=== PATIENT | female | born 1960 | race Caucasian/White ===

== ENCOUNTER 2017-07-23 05:04 | Inpatient (IN) | payer BC ==
[2017-07-23] MEDS ORDERED: Ketorolac INJ* 30 MG/ML 1 ML VIAL IV ONE (05:23)
[2017-07-23] MEDS ORDERED: NS 0.9% 1000 ML*IV.FLUID IV ONE (05:23)
[2017-07-23] MEDS ORDERED: Acetaminophen TAB* 325 MG PO ONE (05:26)
[2017-07-23] MEDS ORDERED: Albuterol/Ipratropium NEB.SOL* Albuterol 2.5 MG/Ipratropium 0.5 MG 3 ML INH ONE (05:26)
[2017-07-23] MEDS ORDERED: Levofloxacin 750 MG IVPREMIX(* 750 MG/150 ML BAG IVPB ONE (05:26)
--- NOTE | 2017-07-23 06:18 | ED ---
Poly Shen Gabriel, scribmaricruz for Joan Quintero MD on 07/23/17 at 0549 . Respiratory - HPI Summary HPI Summary: This patient is a 57 year old F BIBA to [facility] with a chief complaint of trouble breathing since 07-19-17. The patient rates the pain 10/10 in severity. Patient reports productive cough, CP, weakness, and fever. Patient denies n/v. Hx PNA. - History of Current Complaint Chief Complaint: EDFluSymptoms Stated Complaint: FLU LIKE SYMPTOMS Time Seen by Provider: 07/23/17 05:16 Hx Obtained From: Patient Onset/Duration: Lasting Days, Still Present Timing: Constant Initial Severity: Severe Current Severity: Severe Pain Intensity: 10 Character: Cough (Productive) Sputum Amount: Small Associated Signs and Symptoms: Fever, SOB, Chest Pain - Allergy/Home Medications Allergies/Adverse Reactions: Allergies Allergy/AdvReac Type Severity Reaction Status Date / Time cephalexin [From Keflex] Allergy Unknown Verified 07/23/17 05:40 Reaction Details ibuprofen [From Motrin] Allergy Unknown Verified 07/23/17 05:40 Reaction Details PMH/Surg Hx/FS Hx/Imm Hx Endocrine/Hematology History: Reports: Hx Thyroid Disease Cardiovascular History: Denies: Hx Myocardial Infarction Respiratory History: Denies: Hx Chronic Obstructive Pulmonary Disease (COPD), Hx Cystic Fibrosis Neurological History: Denies: Hx CVA, Hx Dementia - Cancer History Hx Chemotherapy: No Hx Radiation Therapy: No Infectious Disease History: No Infectious Disease History: Denies: Traveled Outside the [place] in Last 30 Days - Family History Known Family History: Positive: Hypertension Negative: Respiratory Disease, Seizure Disorder - Social History Alcohol Use: None Substance Use Type: Reports: None Smoking Status (MU): Former Smoker Review of Systems Positive: Fever Positive: Chest Pain Positive: Shortness Of Breath, Cough Positive: Weakness All Other Systems Reviewed And Are Negative: Yes Physical Exam - Summary Physical Exam Summary: VITAL SIGNS: Reviewed. GENERAL: Patient is a well-developed and nourished female who is lying comfortable in the stretcher. Patient is not in any acute respiratory distress. HEAD AND FACE: No signs of trauma. No ecchymosis, hematomas or skull depressions. No sinus tenderness. EYES: PERRLA, EOMI x 2, No injected conjunctiva, no nystagmus. EARS: Hearing grossly intact. Ear canals and tympanic membranes are within normal limits. MOUTH: Oropharynx within normal limits. NECK: Supple, trachea is midline, no adenopathy, no JVD, no carotid bruit, no c- spine tenderness, neck with full ROM. CHEST: Symmetric, no tenderness at palpation LUNGS: bilateral wheezes CVS: Regular rate and rhythm, S1 and S2 present, no murmurs or gallops appreciated. ABDOMEN: Soft, non-tender. No signs of distention. No rebound no guarding, and no masses palpated. Bowel sounds are normal. EXTREMITIES: FROM in all major joints, no edema, no cyanosis or clubbing. NEURO: Alert and oriented x 3. No acute neurological deficits. Speech is normal and follows commands. SKIN: Dry and warm Triage Information Reviewed: Yes Vital Signs On Initial Exam: Initial Vitals Temp Pulse Resp BP Pulse Ox 100.9 F 103 20 108/56 94 07/23/17 05:05 07/23/17 05:05 07/23/17 05:05 07/23/17 05:05 07/23/17 05:05 Vital Signs Reviewed: Yes Diagnostics - Vital Signs Vital Signs Temp Pulse Resp BP Pulse Ox 07/23/17 05:05 100.9 F 103 20 108/56 94 - Laboratory Lab Statement: Any lab studies that have been ordered have been reviewed, and results considered in the medical decision making process. - Radiology CXR Radiology Interpretation Completed By: ED Physician - bilateral basal PNA - EKG 0553 Cardiac Rate: Tachycardia EKG Rhythm: Sinus Tachycardia - at 104 BPM Disposition - Course Assessment/Plan: This patient is a 57 year old F BIBA to [facility] with a chief complaint of trouble breathing since 07-19-17. The patient rates the pain 10/10 in severity. Patient reports productive cough, CP, weakness, and fever. Patient denies n/v. Hx PNA. An EKG reveals sinus tachycardia. CXR reveals, bilateral basal PNA. In the ED course the patient was given Levaquin, albuterol, toradol , and IV fluids. Patient will be admitted under Dr. Barboza. The patient is agreeable with this plan. - Diagnoses Provider Diagnoses: PNA (pneumonia) - Physician Notifications Discussed Care Of Patient With: Brittney Barboza Time Discussed With Above Provider: 06:01 Instructed by Provider To: Admit As Inpatient Discharge - Discharge Plan Condition: Fair Disposition: ADMITTED TO [facility] Referrals: Will Gamez MD [Primary Care Provider] - The documentation as recorded by the Poly york Gabriel accurately reflects the service I personally performed and the decisions made by me, Joan Quintero MD.
[2017-07-23 06:19] LABS: Hematocrit 35 % (35-47); Hemoglobin 11.4 g/dl (12.0-16.0); Mean Corpuscular HGB Conc 33 g/dl (31-36); Mean Corpuscular Hemoglobin 29 pg (27-31); Mean Corpuscular Volume 88 fL (80-97); Mean Platelet Volume 10 um3 (7.4-10.4); Platelet Count 221 10^3/ul (150-450); Red Blood Count 3.91 10^6/ul (4.0-5.4); Red Cell Distribution Width 14 % (10.5-15); White Blood Count 15.3 10^3/ul (3.5-10.8)
[2017-07-23 06:33] LABS: INR 1.17 (0.77-1.02)
[2017-07-23 06:35] LABS: EGFR Non-African American 45.6 (>60)
[2017-07-23] MEDS: Albuterol 2.5 MG/3 ML NEB.SOL* (0.083%) INH SCH (06:44)
[2017-07-23 06:45] LABS: ABS Basophils 0 10^3/ul (0-0.2); ABS Eosinophils 0 10^3/ul (0-0.6); ABS Lymphocytes 0.8 10^3/ul (1.0-4.8); ABS Monocytes 0.4 10^3/ul (0-0.8); ABS Neutrophils 14.2 10^3/ul (1.5-7.7); ABS Nucleated RBC 0 10^3/ul; Eosinophil % 0.1 % (0-6); Lymphocyte % 4.9 % (25-47); Nucleated Red Blood Cells % 0
[2017-07-23] MEDS ORDERED: Aspirin Low Dose CHEW TAB* 81 MG PO ONE (06:46)
--- NOTE | 2017-07-23 08:14 | RAD ---
INDICATION: "Flulike symptoms" COMPARISON: Chest x-ray January 26, 2003 TECHNIQUE: Single AP portable view of the chest was obtained. FINDINGS: Image quality is compromised due to the relative inferiority of a portable chest x-ray. The heart and mediastinum exhibit normal size and contour. There are right greater than left patchy densities overlying the mid-level and lower lungs not seen on the previous chest x-ray. More superiorly the lungs are adequately aerated. There is no evidence of a large pleural effusion. Visualized bones are normal for the patient's age. IMPRESSION: Patchy densities described above are most consistent with pneumonia according to the reported clinical presentation. Pulmonary edema is also part of the differential.
--- NOTE | 2017-07-23 09:01 | HP ---
ADDENDUM: DATE OF ADMISSION: 07/23/17 ASSESSMENT AND PLAN: # next: Elevated troponin - she has not had chest pain during these symptoms. Her first troponin is 0.09. I suspect this is demand in relation to sepsis. I will repeat a troponin and repeat an EKG later today. [id number]/[facility] #: [id number] MTDD
[2017-07-23] MEDS: NS 0.9% 1000 ML* 1,000 ML IV SCH ×2 (09:49→19:00)
[2017-07-23] MEDS: traMADol TAB* 50 MG PO PRN ×2 (10:28→19:39)
[2017-07-23] MEDS: Levothyroxine TAB* 100 MCG TAB PO SCH (10:28)
[2017-07-23] MEDS: Enoxaparin(*) 40 MG/0.4 ML SYR SUBCUT SCH (10:29)
--- NOTE | 2017-07-23 15:55 | HP ---
An addendum is now included on this report. CC: Dr. Gamez.* HISTORY AND PHYSICAL: DATE OF ADMISSION: 07/23/17 TIME OF ADMISSION: 8 o'clock a.m. PRIMARY CARE PHYSICIAN: Dr. Gamez. CHIEF COMPLAINT: Cough. HISTORY OF PRESENT ILLNESS: This is a 57-year-old female with history of DJD and hypothyroidism, who presents with a cough and fever since Saturday. 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 Since Saturday, she has had subjective fevers, nausea and a productive cough at home. She is coughing up copious brown sputum and this morning continued to feel poorly, so she came to the emergency department. No upper respiratory symptoms. No diarrhea. PAST MEDICAL HISTORY: 1. Sciatica. 2. Degenerative joint disease. 3. Hypothyroidism. ALLERGIES: KEFLEX to which she gets lips swelling and eye swelling and MOTRIN. 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 She is a former smoker, but has not smoked since she started feeling poorly 4 days ago. She lives at home with her . She denies alcohol or illicit drug use. REVIEW OF SYSTEMS: Positive for fevers and nausea and cough productive of brown sputum. Negative for diarrhea, abdominal pain, headache, and muscle aches. PHYSICAL EXAMINATION GENERAL: Alert female in no distress, but uncomfortable appearing. VITAL SIGNS: Temperature 100.9, heart rate 102, respiratory rate 27, pulse ox 97% on room air, blood pressure 98/52. HEENT: Pupils equal, round, and reactive to light. No conjunctival injection. Moist mucosa. Tonsils are absent. No pharyngeal exudates. NECK: No JVP. No cervical adenopathy. CHEST: Coarse rhonchi at bilateral bases. She has a wet cough with deep inspiration. Tachycardic, no murmurs. PMI nondisplaced. ABDOMEN: Soft, nontender, nondistended. Bowel sounds normoactive. EXTREMITIES: No edema, no rashes. NEUROLOGIC: Strength 5+, sensation intact. LABORATORY DATA: White blood cell 15.3, hemoglobin 11.4, platelets 221. Troponin 0.09. Flu swab negative. Sodium 133, potassium 4.4, chloride 98, bicarb 28, BUN 35, creatinine 1.22. DIAGNOSTIC DATA: Chest x-ray: Bilateral infiltrates at the inferior bases. EKG: Sinus tachycardia with normal axis, normal intervals. ST elevation in V2. ASSESSMENT AND PLAN: This is a 57-year-old female with history of tobacco abuse , who presents with a cough and fevers for the last 4 days and is found to have the bilateral pneumonia on chest x-ray. 1. Sepsis due to community-acquired pneumonia. She received a dose of levofloxacin in the emergency department and I will continue this due to her CEPHALOSPORIN allergy. Levaquin should cover community acquired organisms as well as atypical organisms. Check a sputum culture. Continue IV fluid resuscitation and check lactate. 2. Acute renal failure, likely prerenal in the setting of sepsis. Continue IV fluid resuscitation. 3. Hypothyroidism. Continue home dose of levothyroxine. 4. Degenerative joint disease and sciatica. Hold Mobic due to acute renal failure and start tramadol p.r.n. 5. DVT prophylaxis. Lovenox subcu. 6. Diet: Unrestricted. 7. Activity: Ad-pat. ADDENDUM TO HISTORY AND PHYSICAL: DATE OF ADMISSION: 07/23/17 ASSESSMENT AND PLAN: # next: Elevated troponin - she has not had chest pain during these symptoms. Her first troponin is 0.09. I suspect this is demand in relation to sepsis. I will repeat a troponin and repeat an EKG later today. [id number]/[facility] #: [id number]/[facility] #: [id number] [facility] SYSTEMBrian
[2017-07-23 19:14] LABS: Urine Appearance Cloudy; Urine Blood Negative (Negative); Urine Color Yellow; Urine Ketones Negative (Negative); Urine Protein 1+(30 mg/dL) (Negative); Urine Urobilinogen Negative (Negative)
[2017-07-24] MEDS: NS 0.9% 1000 ML* 1,000 ML IV SCH ×4 (01:27→20:24)
[2017-07-24 01:55] LABS: Hematocrit 28 % (35-47); Hemoglobin 9.4 g/dl (12.0-16.0); Mean Corpuscular HGB Conc 34 g/dl (31-36); Mean Corpuscular Hemoglobin 30 pg (27-31); Mean Corpuscular Volume 88 fL (80-97); Mean Platelet Volume 10 um3 (7.4-10.4); Platelet Count 202 10^3/ul (150-450); Red Blood Count 3.18 10^6/ul (4.0-5.4); Red Cell Distribution Width 14 % (10.5-15)
[2017-07-24 02:04] LABS: EGFR Non-African American 52.5 (>60)
[2017-07-24 02:31] LABS: ABS Basophils 0 10^3/ul (0-0.2); ABS Eosinophils 0 10^3/ul (0-0.6); ABS Monocytes 0.5 10^3/ul (0-0.8); ABS Neutrophils 9.4 10^3/ul (1.5-7.7); ABS Nucleated RBC 0 10^3/ul; Eosinophil % 0.2 % (0-6); Lymphocyte % 9.2 % (25-47); Nucleated Red Blood Cells % 0
[2017-07-24] MEDS: Levothyroxine TAB* 100 MCG TAB PO SCH (07:40)
[2017-07-24] MEDS: Enoxaparin(*) 40 MG/0.4 ML SYR SUBCUT SCH (07:40)
--- NOTE | 2017-07-24 07:53 | RAD ---
INDICATION: Hypoxia. COMPARISON: Comparison is made with a prior study from July 23, 2017. TECHNIQUE: A portable view of the chest was obtained. FINDINGS: Cardiac and mediastinal contours appear to be within normal limits. There are focal infiltrates present in the mid and lower lung cameron which appear to progressed slightly from the prior study. There are suggestion of small bilateral pleural effusions. IMPRESSION: BILATERAL INFILTRATES DEMONSTRATING INTERVAL PROGRESSION.
[2017-07-24] MEDS ORDERED: Vancomycin(*) 0 MG in NS 0.9% 250 ML* 250 ML IVPB SCH (08:00)
[2017-07-24] MEDS ORDERED: Piperacillin/Tazobac ADVAN(*) 3.375 GM in NS 0.9% 100 ML* 100 ML IVPB ONE (08:00)
[2017-07-24] MEDS ORDERED: Zosyn per Pharmacy* NOTE FOLLOW UP PRN (08:15)
[2017-07-24] MEDS ORDERED: Vancomycin per Pharmacy* NOTE FOLLOW UP PRN (08:26)
[2017-07-24] MEDS ORDERED: Vancomycin(*) 1,250 MG in NS 0.9% 250 ML* 250 ML IVPB ONE (08:30)
[2017-07-24] MEDS ORDERED: Levofloxacin 750 MG IVPREMIX(* 750 MG/150 ML BAG IVPB SCH (09:00)
[2017-07-24] MEDS: traMADol TAB* 50 MG PO PRN ×2 (09:19→20:33)
--- NOTE | 2017-07-24 10:25 | PN ---
Subjective Date of Service: 07/24/17 Interval History: transferred to ICU overnight for hypoxia. now on vapotherm. still feeling short of breath with productive cough. Family History: Unchanged from Admission Social History: Unchanged from Admission Past Medical History: Unchanged from Admission Objective Active Medications: Enoxaparin Sodium (Lovenox(*)) 40 mg SUBCUT Q24H [facility] Last Admin: 07/24/17 07:40 Dose: 40 mg Sodium Chloride (Ns 0.9% 1000 Ml*) 1,000 mls @ 175 mls/hr IV PER RATE [facility] Last Admin: 07/24/17 09:08 Dose: 175 mls/hr Piperacillin Sod/Tazobactam (Sod 13.5 gm/ Sodium Chloride) 500 mls @ 20.833 mls /hr IVPB Q24H [facility] Levothyroxine Sodium (Synthroid Tab*) 100 mcg PO 0600 [facility] Last Admin: 07/24/17 07:40 Dose: 100 mcg Pharmacy Consult (Zosyn Per Pharmacy*) 1 note FOLLOW UP . PRN PRN Reason: PER PROTOCOL Pharmacy Consult (Vancomycin Per Pharmacy*) 1 note FOLLOW UP . PRN PRN Reason: PER PROTOCOL Pneumococcal Polyvalent Vaccine (Pneumococcal Vac 23-Polyvalent*) 0.5 ml IM .ONCE ONE Stop: 07/26/17 09:01 Tramadol HCl (Ultram*) 50 mg PO Q6H PRN PRN Reason: PAIN Last Admin: 07/24/17 09:19 Dose: 50 mg Vital Signs - 8 hr 07/24/17 07/24/17 07/24/17 02:49 03:00 03:01 Temperature Pulse Rate 86 Respiratory 18 20 17 Rate Blood Pressure 120/74 (mmHg) O2 Sat by Pulse 100 99 99 Oximetry 07/24/17 07/24/17 07/24/17 04:00 04:02 04:07 Temperature 99.6 F Pulse Rate Respiratory 25 21 Rate Blood Pressure 113/65 (mmHg) O2 Sat by Pulse 98 99 Oximetry 07/24/17 07/24/17 07/24/17 05:00 05:01 05:42 Temperature Pulse Rate 86 87 86 Respiratory 17 21 19 Rate Blood Pressure 119/68 (mmHg) O2 Sat by Pulse 100 100 100 Oximetry 07/24/17 07/24/17 07/24/17 06:00 06:01 06:16 Temperature Pulse Rate Respiratory 18 19 18 Rate Blood Pressure 117/67 (mmHg) O2 Sat by Pulse 100 99 100 Oximetry 07/24/17 07/24/17 07/24/17 07:00 07:01 07:23 Temperature Pulse Rate 106 101 87 Respiratory 31 31 24 Rate Blood Pressure 103/61 (mmHg) O2 Sat by Pulse 89 89 97 Oximetry 07/24/17 07/24/17 07/24/17 08:00 08:01 08:28 Temperature 98.7 F Pulse Rate 82 81 80 Respiratory 22 22 18 Rate Blood Pressure 114/71 (mmHg) O2 Sat by Pulse 99 99 100 Oximetry Oxygen Devices in Use Now: High Flow Heated Nasal Cannula Appearance: alert, no distress, ill appearing Eyes: No Scleral Icterus Ears/Nose/Mouth/Throat: NL Teeth, Lips, Gums Neck: NL Appearance and Movements; NL JVP Respiratory: - - coarse rhonchi b/l Cardiovascular: NL Sounds; No Murmurs; No JVD, RRR Abdominal: NL Sounds; No Tenderness; No Distention Lymphatic: No Cervical Adenopathy Extremities: No Edema Skin: No Rash or Ulcers Neurological: Alert and Oriented x 3 Result Diagrams: 07/24/17 01:26 07/24/17 01:26 Microbiology and Other Data: Microbiology 07/24/17 01:00 Nasal Screen MRSA (PCR)(SUNDAY) - Final Nasal Mrsa Not Detected 07/23/17 10:20 Gram Stain - Final Sputum Assess/Plan/Problems-Billing Assessment: - Patient Problems (1) Bilateral pneumonia Current Visit: Yes Status: Acute Code(s): J18.9 - PNEUMONIA, UNSPECIFIED ORGANISM SNOMED Code(s): 658207550 Comment: community acquired and no clear risk factors for mrsa or pseudomonas , but given decompensation on levaquin, I broadened her to vanc/zosyn. sputum cultures pending. check CT chest today. (2) Acute respiratory failure with hypoxia Current Visit: Yes Status: Acute Code(s): J96.01 - ACUTE RESPIRATORY FAILURE WITH HYPOXIA SNOMED Code(s): 78500522 Comment: on vapotherm. may be developing to ards. monitor closely for need for mechanical ventilation. she is willing to intubated if needed. (3) Sciatica Current Visit: Yes Status: Acute Code(s): M54.30 - SCIATICA, UNSPECIFIED SIDE SNOMED Code(s): 99069002 Comment: tramadol prn
[2017-07-24] MEDS: guaiFENesin/CODIEN 100MG-10MG* 5 ML UDC PO PRN ×2 (10:40→18:51)
--- NOTE | 2017-07-24 11:54 | RAD ---
INDICATION: Pneumonia with concern for pleural effusion COMPARISON: Same day chest x-ray TECHNIQUE: Real time ultrasound images of the bilateral posterior lung bases were acquired with simental scale and Doppler color flow imaging. FINDINGS: There are small to moderate bilateral pleural effusions that appear to be slightly larger on the left than the right. IMPRESSION: Small bibasilar pleural effusions.
[2017-07-24] MEDS: Piperacillin/Tazobactam 13.5 GM IV 24 hour continuous infusion IVPB SCH ×2 (14:34)
[2017-07-24] MEDS: Vancomycin(*) 1,000 MG in NS 0.9% 250 ML* 250 ML IVPB SCH (17:11)
[2017-07-25] MEDS: Vancomycin(*) 1,000 MG in NS 0.9% 250 ML* 250 ML IVPB SCH ×2 (01:30→09:14)
[2017-07-25] MEDS: NS 0.9% 1000 ML* 1,000 ML IV SCH ×2 (02:11→07:59)
[2017-07-25 05:25] LABS: Hematocrit 25 % (35-47); Hemoglobin 8.3 g/dl (12.0-16.0); Mean Corpuscular HGB Conc 33 g/dl (31-36); Mean Corpuscular Hemoglobin 30 pg (27-31); Mean Corpuscular Volume 89 fL (80-97); Mean Platelet Volume 9 um3 (7.4-10.4); Platelet Count 218 10^3/ul (150-450); Red Cell Distribution Width 14 % (10.5-15); White Blood Count 11.8 10^3/ul (3.5-10.8)
[2017-07-25 05:42] LABS: EGFR Non-African American 78.7 (>60)
[2017-07-25 06:05] LABS: ABS Basophils 0 10^3/ul (0-0.2); ABS Eosinophils 0.1 10^3/ul (0-0.6); ABS Lymphocytes 1.5 10^3/ul (1.0-4.8); ABS Monocytes 1.1 10^3/ul (0-0.8); ABS Neutrophils 9.2 10^3/ul (1.5-7.7); ABS Nucleated RBC 0 10^3/ul; Eosinophil % 0.6 % (0-6); Lymphocyte % 12.8 % (25-47); Nucleated Red Blood Cells % 0
[2017-07-25] MEDS: Levothyroxine TAB* 100 MCG TAB PO SCH (06:22)
[2017-07-25] MEDS: Enoxaparin(*) 40 MG/0.4 ML SYR SUBCUT SCH (07:45)
[2017-07-25] MEDS: guaiFENesin/CODIEN 100MG-10MG* 5 ML UDC PO PRN (07:45)
[2017-07-25] MEDS ORDERED: Vancomycin Trough Check NOTE FOLLOW UP ONE (08:30)
[2017-07-25] MEDS ORDERED: Furosemide IV* 10 MG/ML VIAL (40 MG) IV SLOW PU ONE (10:50)
--- NOTE | 2017-07-25 11:20 | PN ---
Progress Note - Progress Note Date of Service: 07/25/17 Note: CRITICAL CARE MEDICINE Date: 07/25/17 Time: 955 SUBJECTIVE: Patient seen and examined. tired but tolerating PHYSICAL EXAM: Vital Signs: Reviewed. Hr 80s, rr 20s Neurologic: awake, communicating well HEENT: pupils equal. Sclera anicteric. Trachea midline. Cardiovascular: S1 S2, no m Respiratory: bilateral rales anteriorly about half way up on left and 1/3 on right Abdomen: Soft, nt. Extremities: Warm. Access: piv LABS: Reviewed. IMAGING: Reviewed. MEDICATIONS: Reviewed. ASSESSMENT: 57 F Acute hypoxic resp failure B/l Comm Acquired PNA B/l Pleural effusions Severe sepsis on admission - resolving Acute (pre) renal failure on admission - resolved h/o hypothyroidism PLAN: Neurologic: communicating well. can utilize guanfenisin plus codeine for sx relief Cardiovascular: Perfusing. interstial vol up and can moblize with lasix today. Respiratory: tolerating but needing HFO2 continued as bibasilar disease. try metaneb and pulm tolieting to recruit bases better, although its going to take time. no wheeze but nebs prn as may have some ailments with secretion clearance. time. Gastrointestinal: po diet. Renal/Metabolic: function better but needs lasix and to be able to mobilize fluid now. Infectious Disease: On zosyn. can dc vanco. keep atypical coverage - use azithro. cx otherwise benign thusfar. Question if this is post viral; even with neg flu. Hematology: stable. lovenox Endocrine: no indication for steroids at this time. T4 replacement Musculoskeletal: oob. slow and steady. Psych/Social: d/w pt who expressed understanding Supportive and preventative care as ordered. SUP: po VTE prophylaxis: lovenox Disposition: ICU Code Status: Full Critical Care Time: 35min Burke England DO
[2017-07-25] MEDS ORDERED: Azithromycin IV(*) 500 MG in NS 0.9% 250 ML* 250 ML IVPB ONE (11:30)
[2017-07-25] MEDS: Albuterol/Ipratropium NEB.SOL* Albuterol 2.5 MG/Ipratropium 0.5 MG 3 ML INH PRN ×3 (11:36→19:47)
[2017-07-25] MEDS: Piperacillin/Tazobactam 13.5 GM IV 24 hour continuous infusion IVPB SCH ×2 (13:27)
[2017-07-25] MEDS: methylPREDNISolone SOD 40 MG* 1 ML VIAL IV SCH (16:31)
[2017-07-25] MEDS: traMADol TAB* 50 MG PO PRN (16:37)
[2017-07-26] MEDS: methylPREDNISolone SOD 40 MG* 1 ML VIAL IV SCH ×3 (00:24→17:23)
[2017-07-26] MEDS: Levothyroxine TAB* 100 MCG TAB PO SCH (05:48)
[2017-07-26] MEDS: Albuterol/Ipratropium NEB.SOL* Albuterol 2.5 MG/Ipratropium 0.5 MG 3 ML INH PRN (08:26)
[2017-07-26] MEDS ORDERED: Pneumococcal *Vac Polyvalent 0.5 ML VIAL IM ONE (09:00)
[2017-07-26] MEDS: Enoxaparin(*) 40 MG/0.4 ML SYR SUBCUT SCH (09:55)
[2017-07-26] MEDS: Azithromycin TAB* 250 MG PO SCH (09:57)
[2017-07-26] MEDS ORDERED: Furosemide IV* 10 MG/ML VIAL (40 MG) IV SLOW PU ONE (10:43)
[2017-07-26] MEDS ORDERED: Potassium Chlor TAB* 20 MEQ TAB.ER PO ONE (11:11)
--- NOTE | 2017-07-26 12:14 | PN ---
Progress Note - Progress Note Date of Service: 07/26/17 Note: CRITICAL CARE MEDICINE Date: 07/26/17 Time: 950 SUBJECTIVE: Patient seen and examined. looks better and feels a little better. PHYSICAL EXAM: Vital Signs: Reviewed. Hr 80s, rr 20s. down to 20L Neurologic: awake, communicating well HEENT: pupils equal. Sclera anicteric. Trachea midline. Cardiovascular: S1 S2, no m Respiratory: bilateral rales less and dec on left > right anteriorly Abdomen: Soft, nt. Extremities: Warm. Access: piv LABS: Reviewed. IMAGING: Reviewed. MEDICATIONS: Reviewed. ASSESSMENT: 57 F Acute hypoxic resp failure B/l Comm Acquired PNA B/l Pleural effusions Severe sepsis on admission - resolving Acute (pre) renal failure on admission - resolved h/o hypothyroidism PLAN: Neurologic: communicating well. prns Cardiovascular: Perfusing. mobilize interstitial vol as able again today to reduce lung water Respiratory: slow continue wean on HFO2 today and hopefully off later. metaneb continued today. nebs. oob. Gastrointestinal: po diet. Renal/Metabolic: K replete and f/u labs in am Infectious Disease: zosyn/azithro continued. Question post viral Hematology: stable. lovenox Endocrine: may have a slight benefit for pulse steroids. continued. T4 replacement Musculoskeletal: oob. slow and steady. Psych/Social: d/w pt who expressed understanding Supportive and preventative care as ordered. SUP: po VTE prophylaxis: lovenox Disposition: ICU today and hopefully out mor Code Status: Full Critical Care Time: 25min FLucy England DO
[2017-07-26] MEDS: ZOSYN 3.375 GM Q8H per EXTENDED INFUSION IVPB SCH ×2 (17:23)
[2017-07-27] MEDS: ZOSYN 3.375 GM Q8H per EXTENDED INFUSION IVPB SCH ×6 (00:42→17:03)
[2017-07-27] MEDS: methylPREDNISolone SOD 40 MG* 1 ML VIAL IV SCH ×3 (00:42→17:03)
[2017-07-27] MEDS: Levothyroxine TAB* 100 MCG TAB PO SCH (04:56)
[2017-07-27 05:46] LABS: Hematocrit 29 % (35-47); Hemoglobin 9.5 g/dl (12.0-16.0); Mean Corpuscular HGB Conc 33 g/dl (31-36); Mean Corpuscular Hemoglobin 29 pg (27-31); Mean Corpuscular Volume 87 fL (80-97); Mean Platelet Volume 9 um3 (7.4-10.4); Platelet Count 475 10^3/ul (150-450); Red Cell Distribution Width 14 % (10.5-15); White Blood Count 33.3 10^3/ul (3.5-10.8)
[2017-07-27 06:01] LABS: EGFR Non-African American 71.1 (>60)
[2017-07-27 06:48] LABS: ABS Basophils 0 10^3/ul (0-0.2); ABS Eosinophils 0 10^3/ul (0-0.6); ABS Lymphocytes 1.7 10^3/ul (1.0-4.8); ABS Monocytes 1.5 10^3/ul (0-0.8); ABS Neutrophils 30.1 10^3/ul (1.5-7.7); ABS Nucleated RBC 0 10^3/ul; Eosinophil % 0 % (0-6); Lymphocyte % 5.1 % (25-47); Nucleated Red Blood Cells % 0
[2017-07-27] MEDS ORDERED: Potassium Phosphate IV* 30 MMOLE in NS 0.9% 250 ML* 250 ML IVPB ONE (08:00)
[2017-07-27] MEDS: Azithromycin TAB* 250 MG PO SCH (08:18)
[2017-07-27] MEDS: Enoxaparin(*) 40 MG/0.4 ML SYR SUBCUT SCH (08:18)
[2017-07-27] MEDS ORDERED: Furosemide IV* 10 MG/ML VIAL (40 MG) IV SLOW PU ONE (09:53)
[2017-07-27] MEDS: Albuterol/Ipratropium NEB.SOL* Albuterol 2.5 MG/Ipratropium 0.5 MG 3 ML INH PRN ×3 (10:15→19:59)
--- NOTE | 2017-07-27 10:19 | RAD ---
Indication: Follow-up respiratory failure. Comparison: July 24, 2017 Technique: Upright AP 0900 hours Report: Bilateral small dependent pleural effusions with associated basilar atelectasis. Decreased pleural fluid on the RIGHT with resolution of previous fluid at the RIGHT minor fissure. Patchy bilateral alveolar consolidation without significant change. Negative for pneumothorax. Upper normal heart size. Unremarkable central pulmonary vasculature. IMPRESSION: Bilateral pulmonary infiltrates and pleural effusions with interval decrease in RIGHT pleural fluid.
--- NOTE | 2017-07-27 10:41 | PN ---
Progress Note - Progress Note Date of Service: 07/27/17 Note: CRITICAL CARE MEDICINE Date: 07/27/17 Time: 950 SUBJECTIVE: Patient seen and examined. feel ok but tired PHYSICAL EXAM: Vital Signs: Reviewed. Hr 80s, rr 20s. off vapo Neurologic: awake, communicating well HEENT: pupils equal. Sclera anicteric. Trachea midline. Cardiovascular: S1 S2, no m Respiratory: bilateral rales less again with dec bl left > right Abdomen: Soft, nt. Extremities: Warm. Access: piv LABS: Reviewed. IMAGING: Reviewed. MEDICATIONS: Reviewed. ASSESSMENT: 57 F Acute hypoxic resp failure B/l Comm Acquired PNA B/l Pleural effusions Severe sepsis on admission - resolving Acute (pre) renal failure on admission - resolved h/o hypothyroidism PLAN: Neurologic: stable. Cardiovascular: Perfusing. mobilize interstitial again if able to reduce lung water. no indication for thora. Respiratory: off HFO2 today and see how she does. can use tonight if fatigued at all. metaneb continued today. nebs. oob. Gastrointestinal: po diet. Renal/Metabolic: replete lytes as needed. f/u labs in am Infectious Disease: zosyn/azithro continued. wbc shot up along with acute phase reactants post steroids. not acting infectious at this point. dz process still presented as infectious yet inflammatory or vasculitic questions still linger a little, yet improving all the same. Post viral still fits. check crp tomorrow for f/u. d/w pt Hematology: stable. lovenox Endocrine: pulse steroids. T4 replacement Musculoskeletal: oob. progress Psych/Social: d/w pt who expressed understanding Supportive and preventative care as ordered. SUP: po VTE prophylaxis: lovenox Disposition: ICU today and hopefully out mor Code Status: Full Critical Care Time: 25min Burke England DO
[2017-07-28] MEDS: ZOSYN 3.375 GM Q8H per EXTENDED INFUSION IVPB SCH ×6 (00:53→18:13)
[2017-07-28] MEDS: methylPREDNISolone SOD 40 MG* 1 ML VIAL IV SCH ×2 (00:53→10:15)
[2017-07-28 04:29] LABS: Hematocrit 27 % (35-47); Hemoglobin 9.2 g/dl (12.0-16.0); Mean Corpuscular HGB Conc 34 g/dl (31-36); Mean Corpuscular Hemoglobin 29 pg (27-31); Mean Corpuscular Volume 87 fL (80-97); Mean Platelet Volume 8 um3 (7.4-10.4); Platelet Count 553 10^3/ul (150-450); Red Blood Count 3.15 10^6/ul (4.0-5.4); Red Cell Distribution Width 14 % (10.5-15); White Blood Count 28.9 10^3/ul (3.5-10.8)
[2017-07-28 04:43] LABS: EGFR Non-African American 74.2 (>60)
[2017-07-28 05:04] LABS: ABS Basophils 0.1 10^3/ul (0-0.2); ABS Eosinophils 0 10^3/ul (0-0.6); ABS Monocytes 1.1 10^3/ul (0-0.8); ABS Neutrophils 26.7 10^3/ul (1.5-7.7); ABS Nucleated RBC 0 10^3/ul; Eosinophil % 0 % (0-6); Lymphocyte % 3.5 % (25-47); Nucleated Red Blood Cells % 0
[2017-07-28] MEDS: Levothyroxine TAB* 100 MCG TAB PO SCH (05:44)
[2017-07-28] MEDS ORDERED: Potassium Phosphate IV* 30 MMOLE in NS 0.9% 250 ML* 250 ML IVPB ONE (08:00)
[2017-07-28] MEDS: Enoxaparin(*) 40 MG/0.4 ML SYR SUBCUT SCH (10:17)
[2017-07-28] MEDS: Azithromycin TAB* 250 MG PO SCH (10:17)
[2017-07-28] MEDS ORDERED: Calcium Carbonate CHEW TAB* 500 MG (TUMS) PO PRN (10:27)
[2017-07-28] MEDS ORDERED: Ondansetron INJ* 2 MG/ML VIAL IV PRN (10:27)
[2017-07-28] MEDS ORDERED: Acetaminophen TAB* 325 MG PO PRN (10:29)
--- NOTE | 2017-07-28 10:54 | PN ---
Progress Note - Progress Note Date of Service: 07/28/17 Note: CRITICAL CARE MEDICINE Date: 07/28/17 Time: 935 SUBJECTIVE: Patient seen and examined. feels ok and perhaps better. PHYSICAL EXAM: Vital Signs: Reviewed. Hr 80s, rr teens to 20s. off vapo. 2L Neurologic: awake, communicating well HEENT: pupils equal. Sclera anicteric. Trachea midline. Cardiovascular: S1 S2, no m Respiratory: much better. more aeration in bases and no rales appreciated Abdomen: Soft, nt. Extremities: Warm. Access: piv LABS: Reviewed. IMAGING: Reviewed. MEDICATIONS: Reviewed. ASSESSMENT: 57 F Acute hypoxic resp failure B/l Comm Acquired PNA B/l Pleural effusions Severe sepsis on admission - resolving Acute (pre) renal failure on admission - resolved h/o hypothyroidism PLAN: Neurologic: stable. Cardiovascular: Perfusing. fluid status well. doing great. Respiratory: much better. dc metaneb. IS. flutter. nebs prn. oob. can consider pulm eval for f/u needs perhaps but certainly seems like she has done everything well to combat pna. no rescue needs. wean off O2. Gastrointestinal: po diet. Renal/Metabolic: replete lytes. f/u labs in am Infectious Disease: zosyn 5/7 and azithro 4/5 continued. wbc up but better. all acute phases went up accordingly and clincally seeeming as appropriate response. clincal f/u don't john. Hematology: stable. lovenox Endocrine: pulse steroids can come back off in 2 days. T4 replacement Musculoskeletal: oob. pt Psych/Social: d/w pt who expressed understanding Supportive and preventative care as ordered. SUP: po VTE prophylaxis: lovenox Disposition: ok for floor. hopefully with pt and O2 wean may be ready for dispo home come tues? Code Status: Full Critical Care Time: 25min FLucy England,
[2017-07-28] MEDS: predniSONE TAB* 20 MG PO SCH (11:19)
[2017-07-28] MEDS: traMADol TAB* 50 MG PO PRN (22:40)
[2017-07-29] MEDS: ZOSYN 3.375 GM Q8H per EXTENDED INFUSION IVPB SCH ×6 (00:56→17:25)
[2017-07-29] MEDS: Levothyroxine TAB* 100 MCG TAB PO SCH (05:56)
[2017-07-29 06:17] LABS: Hematocrit 27 % (35-47); Mean Corpuscular HGB Conc 33 g/dl (31-36); Mean Corpuscular Hemoglobin 29 pg (27-31); Mean Corpuscular Volume 88 fL (80-97); Mean Platelet Volume 8 um3 (7.4-10.4); Platelet Count 545 10^3/ul (150-450); Red Blood Count 3.07 10^6/ul (4.0-5.4); Red Cell Distribution Width 14 % (10.5-15); White Blood Count 27.9 10^3/ul (3.5-10.8)
[2017-07-29 06:27] LABS: EGFR Non-African American 74.2 (>60)
[2017-07-29 07:47] LABS: ABS Basophils 0 10^3/ul (0-0.2); ABS Eosinophils 0 10^3/ul (0-0.6); ABS Lymphocytes 1.6 10^3/ul (1.0-4.8); ABS Monocytes 1.3 10^3/ul (0-0.8); ABS Nucleated RBC 0 10^3/ul; Eosinophil % 0.1 % (0-6); Lymphocyte % 5.8 % (25-47); Nucleated Red Blood Cells % 0
[2017-07-29] MEDS: Enoxaparin(*) 40 MG/0.4 ML SYR SUBCUT SCH (09:18)
[2017-07-29] MEDS: Azithromycin TAB* 250 MG PO SCH (09:18)
[2017-07-29] MEDS: predniSONE TAB* 20 MG PO SCH (09:18)
--- NOTE | 2017-07-29 11:16 | PN ---
Subjective Date of Service: 07/29/17 Interval History: states that she is feeling a little better today, breathing improving, feels weak, Denies chest pain or abd pain. Denies N/V/D C/o shortness of breath with exertion Family History: Unchanged from Admission Social History: Unchanged from Admission Past Medical History: Unchanged from Admission Objective Active Medications: Acetaminophen (Tylenol Tab*) 650 mg PO Q4H PRN PRN Reason: FEVER/PAIN Albuterol/Ipratropium (Duoneb (Albuterol 2.5 Mg/Ipratropium 0.5 Mg)) 1 neb INH Q4H PRN PRN Reason: SOB/WHEEZING Last Admin: 07/27/17 19:59 Dose: 1 neb Calcium Carbonate (Tums*) 500 mg PO Q4H PRN PRN Reason: INDIGESTION Enoxaparin Sodium (Lovenox(*)) 40 mg SUBCUT Q24H [facility] Last Admin: 07/29/17 09:18 Dose: 40 mg Guaifenesin/Codeine Phosphate (Robitussin Ac 100mg-10mg*) 5 ml PO Q4H PRN PRN Reason: COUGH Last Admin: 07/25/17 07:45 Dose: 5 ml Piperacillin Sod/Tazobactam (Sod 3.375 gm/ Sodium Chloride) 100 mls @ 25 mls/ hr IVPB Q8H [facility] Last Admin: 07/29/17 09:18 Dose: 25 mls/hr Levothyroxine Sodium (Synthroid Tab*) 100 mcg PO 0600 [facility] Last Admin: 07/29/17 05:56 Dose: 100 mcg Ondansetron HCl (Zofran Inj*) 4 mg IV Q6H PRN PRN Reason: NAUSEA Last Admin: 07/28/17 11:19 Dose: 4 mg Pharmacy Consult (Zosyn Per Pharmacy*) 1 note FOLLOW UP . PRN PRN Reason: PER PROTOCOL Prednisone (Deltasone Tab*) 20 mg PO DAILY [facility] Stop: 07/30/17 09:01 Last Admin: 07/29/17 09:18 Dose: 20 mg Tramadol HCl (Ultram*) 50 mg PO Q6H PRN PRN Reason: PAIN Last Admin: 07/28/17 22:40 Dose: 50 mg Vital Signs - 8 hr 07/29/17 07/29/17 07/29/17 03:37 04:05 07:40 Temperature 97.5 F 97.4 F Pulse Rate 56 52 Respiratory 16 18 Rate Blood Pressure 107/48 124/57 (mmHg) O2 Sat by Pulse 98 95 95 Oximetry 07/29/17 08:00 Temperature Pulse Rate Respiratory 18 Rate Blood Pressure (mmHg) O2 Sat by Pulse Oximetry Oxygen Devices in Use Now: Nasal Cannula Appearance: appears comfortable resting in bed, no respiratory distress Eyes: No Scleral Icterus Ears/Nose/Mouth/Throat: Clear Oropharnyx, Mucous Membranes Moist Neck: NL Appearance and Movements; NL JVP, Trachea Midline Respiratory: Symmetrical Chest Expansion and Respiratory Effort, - - left lower lobe with crackles, diminished in bilat bases Cardiovascular: NL Sounds; No Murmurs; No JVD, RRR, No Edema Abdominal: NL Sounds; No Tenderness; No Distention Extremities: No Edema, No Clubbing, Cyanosis Skin: No Rash or Ulcers Neurological: Alert and Oriented x 3, NL Muscle Strength and Tone Nutrition: Taking PO's Result Diagrams: 07/29/17 05:18 07/29/17 05:18 Microbiology and Other Data: Microbiology 07/24/17 01:00 Nasal Screen MRSA (PCR)(SUNDAY) - Final Nasal Mrsa Not Detected 07/23/17 10:20 Gram Stain - Final Sputum Assess/Plan/Problems-Billing Assessment: This is a 57 y.o female that was admitted for bilat pna - Patient Problems (1) Acute respiratory failure with hypoxia Current Visit: Yes Status: Acute Code(s): J96.01 - ACUTE RESPIRATORY FAILURE WITH HYPOXIA SNOMED Code(s): 73159054 Comment: resolved (2) Bilateral pneumonia Current Visit: Yes Status: Acute Code(s): J18.9 - PNEUMONIA, UNSPECIFIED ORGANISM SNOMED Code(s): 457703259 Comment: community acquired and no clear risk factors for mrsa or pseudomonas improving- o2 on via NC ambulating ~ continues to c/o sob with exertion sputum cultures~ normal rayo (3) Sciatica Current Visit: Yes Status: Acute Code(s): M54.30 - SCIATICA, UNSPECIFIED SIDE SNOMED Code(s): 23614911 Comment: tramadol prn Status and Disposition: Inpatient ~ possible discharge home in a few days
[2017-07-29] MEDS: traMADol TAB* 50 MG PO PRN (21:24)
[2017-07-30] MEDS: ZOSYN 3.375 GM Q8H per EXTENDED INFUSION IVPB SCH ×6 (00:29→17:43)
[2017-07-30] MEDS: Levothyroxine TAB* 100 MCG TAB PO SCH (05:57)
[2017-07-30 06:13] LABS: Hematocrit 28 % (35-47); Hemoglobin 9.3 g/dl (12.0-16.0); Mean Corpuscular HGB Conc 33 g/dl (31-36); Mean Corpuscular Hemoglobin 29 pg (27-31); Mean Corpuscular Volume 88 fL (80-97); Mean Platelet Volume 8 um3 (7.4-10.4); Platelet Count 596 10^3/ul (150-450); Red Blood Count 3.21 10^6/ul (4.0-5.4); Red Cell Distribution Width 14 % (10.5-15); White Blood Count 24.5 10^3/ul (3.5-10.8)
[2017-07-30 06:27] LABS: EGFR Non-African American 75.3 (>60)
[2017-07-30 06:55] LABS: ABS Basophils 0 10^3/ul (0-0.2); ABS Eosinophils 0.1 10^3/ul (0-0.6); ABS Lymphocytes 3.1 10^3/ul (1.0-4.8); ABS Neutrophils 20.1 10^3/ul (1.5-7.7); ABS Nucleated RBC 0.1 10^3/ul; Eosinophil % 0.6 % (0-6); Lymphocyte % 12.8 % (25-47); Nucleated Red Blood Cells % 0.3
[2017-07-30] MEDS: predniSONE TAB* 20 MG PO SCH (08:54)
[2017-07-30] MEDS: Enoxaparin(*) 40 MG/0.4 ML SYR SUBCUT SCH (08:54)
--- NOTE | 2017-07-30 17:27 | PN ---
Subjective Date of Service: 07/30/17 Interval History: Patient states that she is feeling better. Continue to feel weak but reports that she has been ambulating in the hallways. Denies chest pain or shortness of breath. Denies abd pain. n/v/d. reports that she has had 3 episodes of blood when wiping. no clots, dark in color. Family History: Unchanged from Admission Social History: Unchanged from Admission Past Medical History: Unchanged from Admission Objective Active Medications: Acetaminophen (Tylenol Tab*) 650 mg PO Q4H PRN PRN Reason: FEVER/PAIN Albuterol/Ipratropium (Duoneb (Albuterol 2.5 Mg/Ipratropium 0.5 Mg)) 1 neb INH Q4H PRN PRN Reason: SOB/WHEEZING Last Admin: 07/27/17 19:59 Dose: 1 neb Calcium Carbonate (Tums*) 500 mg PO Q4H PRN PRN Reason: INDIGESTION Guaifenesin/Codeine Phosphate (Robitussin Ac 100mg-10mg*) 5 ml PO Q4H PRN PRN Reason: COUGH Last Admin: 07/25/17 07:45 Dose: 5 ml Piperacillin Sod/Tazobactam (Sod 3.375 gm/ Sodium Chloride) 100 mls @ 25 mls/ hr IVPB Q8H [facility] Last Admin: 07/30/17 08:54 Dose: 25 mls/hr Levothyroxine Sodium (Synthroid Tab*) 100 mcg PO 0600 [facility] Last Admin: 07/30/17 05:57 Dose: 100 mcg Nystatin (Nystatin Suspension*) 500,000 units PO QID [facility] Stop: 08/06/17 16:52 Ondansetron HCl (Zofran Inj*) 4 mg IV Q6H PRN PRN Reason: NAUSEA Last Admin: 07/28/17 11:19 Dose: 4 mg Pharmacy Consult (Zosyn Per Pharmacy*) 1 note FOLLOW UP . PRN PRN Reason: PER PROTOCOL Tramadol HCl (Ultram*) 50 mg PO Q6H PRN PRN Reason: PAIN Vital Signs - 8 hr 07/30/17 15:07 Temperature 98.0 F Pulse Rate 77 Respiratory 16 Rate Blood Pressure 116/53 (mmHg) O2 Sat by Pulse 95 Oximetry Oxygen Devices in Use Now: Nasal Cannula Appearance: appears comfortable resting in bed Eyes: No Scleral Icterus Ears/Nose/Mouth/Throat: Clear Oropharnyx, Mucous Membranes Moist Neck: NL Appearance and Movements; NL JVP, Trachea Midline Respiratory: Symmetrical Chest Expansion and Respiratory Effort, Clear to Auscultation, - - diminshed in the bases bilat left base with a few crackles Cardiovascular: NL Sounds; No Murmurs; No JVD, RRR, No Edema Abdominal: NL Sounds; No Tenderness; No Distention Extremities: No Edema, No Clubbing, Cyanosis Skin: No Rash or Ulcers Neurological: Alert and Oriented x 3, NL Muscle Strength and Tone Nutrition: Taking PO's Result Diagrams: 07/31/17 05:37 07/31/17 05:37 Microbiology and Other Data: Microbiology 07/24/17 01:00 Nasal Screen MRSA (PCR)(SUNDAY) - Final Nasal Mrsa Not Detected 07/23/17 10:20 Gram Stain - Final Sputum Assess/Plan/Problems-Billing Assessment: This is a 57 y.o female that was admitted for bilat pna - Patient Problems (1) Acute respiratory failure with hypoxia Current Visit: Yes Status: Acute Code(s): J96.01 - ACUTE RESPIRATORY FAILURE WITH HYPOXIA SNOMED Code(s): 93682850 Comment: resolved (2) Bilateral pneumonia Current Visit: Yes Status: Acute Code(s): J18.9 - PNEUMONIA, UNSPECIFIED ORGANISM SNOMED Code(s): 995224544 Comment: community acquired and no clear risk factors for mrsa or pseudomonas improving- o2 on via NC ~ continue to wean O2 ambulating ~ continues to c/o sob with exertion sputum cultures~ normal rayo (3) Bleeding Current Visit: Yes Status: Acute Comment: Patient reports that she has had 3 episodes of small amount of bleeding when wiping after urination. Denies urinary frequency, urgency or pain after urination. Suspect this could be related to lovenox- will stop lovenox and start SCD for DVT prop. 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 and everything with the exam was within normal limits (4) Sciatica Current Visit: Yes Status: Acute Code(s): M54.30 - SCIATICA, UNSPECIFIED SIDE SNOMED Code(s): 37955633 Comment: tramadol prn (5) Thrush, oral Current Visit: Yes Status: Acute Code(s): B37.0 - CANDIDAL STOMATITIS SNOMED Code(s): 98354802 Comment: will start nystatin swish and spit (6) DVT prophylaxis Current Visit: Yes Status: Acute Code(s): JEM8303 - SNOMED Code(s): 443952704 Comment: Will stop lovenox and start SCD's encourage ambulation (7) Full code status Current Visit: Yes Status: Acute Code(s): Z78.9 - OTHER SPECIFIED HEALTH STATUS SNOMED Code(s): 234940326 Status and Disposition: Inpatient ~ possible discharge home in a few days
[2017-07-30 17:33] LABS: Urine Appearance Clear; Urine Blood 1+ (Negative); Urine Color Yellow; Urine Ketones Negative (Negative); Urine Protein Negative (Negative); Urine Specific Gravity 1.014 (1.010-1.030); Urine Urobilinogen Negative (Negative)
[2017-07-30] MEDS: Nystatin SUSPENSION* 100000 UNITS/ML 5 ML UDC PO SCH ×2 (17:43→20:26)
[2017-07-31] MEDS: ZOSYN 3.375 GM Q8H per EXTENDED INFUSION IVPB SCH ×6 (00:41→17:22)
[2017-07-31] MEDS: Levothyroxine TAB* 100 MCG TAB PO SCH (05:20)
[2017-07-31 06:15] LABS: ABS Basophils 0 10^3/ul (0-0.2); ABS Eosinophils 0.2 10^3/ul (0-0.6); ABS Lymphocytes 3.1 10^3/ul (1.0-4.8); ABS Nucleated RBC 0 10^3/ul; Eosinophil % 0.7 % (0-6); Hematocrit 29 % (35-47); Hemoglobin 9.7 g/dl (12.0-16.0); Lymphocyte % 14.7 % (25-47); Mean Corpuscular HGB Conc 34 g/dl (31-36); Mean Corpuscular Hemoglobin 30 pg (27-31); Mean Corpuscular Volume 87 fL (80-97); Mean Platelet Volume 8 um3 (7.4-10.4); Nucleated Red Blood Cells % 0.1; Platelet Count 660 10^3/ul (150-450); Red Blood Count 3.31 10^6/ul (4.0-5.4); Red Cell Distribution Width 14 % (10.5-15); White Blood Count 21.3 10^3/ul (3.5-10.8)
[2017-07-31 06:48] LABS: EGFR Non-African American 74.2 (>60)
[2017-07-31] MEDS: traMADol TAB* 50 MG PO PRN ×2 (09:47→22:28)
[2017-07-31] MEDS: Nystatin SUSPENSION* 100000 UNITS/ML 5 ML UDC PO SCH ×4 (09:48→20:10)
--- NOTE | 2017-07-31 19:48 | PN ---
Subjective Date of Service: 07/31/17 Interval History: Patient states that she is feeling better. Continues to feel weak but reports that she has been ambulating in the hallways. Denies chest pain or shortness of breath. Denies abd pain. n/v/d. reports no further bleeding after urinating Family History: Unchanged from Admission Social History: Unchanged from Admission Past Medical History: Unchanged from Admission Objective Active Medications: Acetaminophen (Tylenol Tab*) 650 mg PO Q4H PRN PRN Reason: FEVER/PAIN Albuterol/Ipratropium (Duoneb (Albuterol 2.5 Mg/Ipratropium 0.5 Mg)) 1 neb INH Q4H PRN PRN Reason: SOB/WHEEZING Last Admin: 07/27/17 19:59 Dose: 1 neb Calcium Carbonate (Tums*) 500 mg PO Q4H PRN PRN Reason: INDIGESTION Guaifenesin/Codeine Phosphate (Robitussin Ac 100mg-10mg*) 5 ml PO Q4H PRN PRN Reason: COUGH Last Admin: 07/25/17 07:45 Dose: 5 ml Piperacillin Sod/Tazobactam (Sod 3.375 gm/ Sodium Chloride) 100 mls @ 25 mls/ hr IVPB Q8H [facility] Last Admin: 07/31/17 17:22 Dose: 25 mls/hr Levothyroxine Sodium (Synthroid Tab*) 100 mcg PO 0600 [facility] Last Admin: 07/31/17 05:20 Dose: 100 mcg Nystatin (Nystatin Suspension*) 500,000 units PO QID [facility] Stop: 08/06/17 16:52 Last Admin: 07/31/17 17:14 Dose: Not Given Ondansetron HCl (Zofran Inj*) 4 mg IV Q6H PRN PRN Reason: NAUSEA Last Admin: 07/28/17 11:19 Dose: 4 mg Pharmacy Consult (Zosyn Per Pharmacy*) 1 note FOLLOW UP . PRN PRN Reason: PER PROTOCOL Tramadol HCl (Ultram*) 50 mg PO Q6H PRN PRN Reason: PAIN Last Admin: 07/31/17 09:47 Dose: 50 mg Vital Signs - 8 hr 07/31/17 07/31/17 07/31/17 14:17 14:35 18:13 Temperature 97.9 F 97.9 F Pulse Rate 89 60 Respiratory 18 18 Rate Blood Pressure 110/52 (mmHg) O2 Sat by Pulse 94 94 Oximetry Oxygen Devices in Use Now: Nasal Cannula Appearance: sitting on the edge of the bed, appears comfortable, no respiratory distress Eyes: No Scleral Icterus Ears/Nose/Mouth/Throat: Clear Oropharnyx, Mucous Membranes Moist Neck: NL Appearance and Movements; NL JVP, Trachea Midline Respiratory: Symmetrical Chest Expansion and Respiratory Effort, Clear to Auscultation Cardiovascular: NL Sounds; No Murmurs; No JVD, No Edema Abdominal: NL Sounds; No Tenderness; No Distention Extremities: No Edema, No Clubbing, Cyanosis Skin: No Rash or Ulcers Neurological: Alert and Oriented x 3, NL Gait, NL Muscle Strength and Tone Nutrition: Taking PO's Result Diagrams: 07/31/17 05:37 07/31/17 05:37 Microbiology and Other Data: Microbiology 07/24/17 01:00 Nasal Screen MRSA (PCR)(SUNDAY) - Final Nasal Mrsa Not Detected 07/23/17 10:20 Gram Stain - Final Sputum Assess/Plan/Problems-Billing Assessment: This is a 57 y.o female that was admitted for bilat pna - Patient Problems (1) Acute respiratory failure with hypoxia Current Visit: Yes Status: Acute Code(s): J96.01 - ACUTE RESPIRATORY FAILURE WITH HYPOXIA SNOMED Code(s): 63755033 Comment: resolved (2) Bilateral pneumonia Current Visit: Yes Status: Acute Code(s): J18.9 - PNEUMONIA, UNSPECIFIED ORGANISM SNOMED Code(s): 982224543 Comment: community acquired and no clear risk factors for mrsa or pseudomonas improving- o2 on via NC ~ continue to wean O2 ambulating ~ continues to c/o sob with exertion sputum cultures~ normal rayo (3) Bleeding Current Visit: Yes Status: Acute Comment: Patient reports that she has had 3 episodes of small amount of bleeding when wiping after urination. Denies urinary frequency, urgency or pain after urination.~ no further bleeding Suspect this could be related to lovenox- will stop lovenox and start SCD for DVT prop. 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 and everything with the exam was within normal limits (4) Sciatica Current Visit: Yes Status: Acute Code(s): M54.30 - SCIATICA, UNSPECIFIED SIDE SNOMED Code(s): 95605571 Comment: tramadol prn (5) Thrush, oral Current Visit: Yes Status: Acute Code(s): B37.0 - CANDIDAL STOMATITIS SNOMED Code(s): 89782004 Comment: will start nystatin swish and spit improving (6) DVT prophylaxis Current Visit: Yes Status: Acute Code(s): SLU9621 - SNOMED Code(s): 463065941 Comment: Will stop lovenox and start SCD's encourage ambulation (7) Full code status Current Visit: Yes Status: Acute Code(s): Z78.9 - OTHER SPECIFIED HEALTH STATUS SNOMED Code(s): 958679718 Status and Disposition: Inpatient ~ possible discharge home in AM
[2017-08-01] MEDS: ZOSYN 3.375 GM Q8H per EXTENDED INFUSION IVPB SCH ×4 (00:50→09:18)
[2017-08-01] MEDS: Levothyroxine TAB* 100 MCG TAB PO SCH (05:36)
[2017-08-01 05:50] LABS: Hematocrit 30 % (35-47); Mean Corpuscular HGB Conc 34 g/dl (31-36); Mean Corpuscular Hemoglobin 30 pg (27-31); Mean Corpuscular Volume 88 fL (80-97); Mean Platelet Volume 7 um3 (7.4-10.4); Platelet Count 675 10^3/ul (150-450); Red Blood Count 3.35 10^6/ul (4.0-5.4); Red Cell Distribution Width 14 % (10.5-15); White Blood Count 14.6 10^3/ul (3.5-10.8)
[2017-08-01 05:59] LABS: EGFR Non-African American 74.2 (>60)
[2017-08-01 06:32] LABS: ABS Basophils 0 10^3/ul (0-0.2); ABS Eosinophils 0.3 10^3/ul (0-0.6); ABS Lymphocytes 2.9 10^3/ul (1.0-4.8); ABS Monocytes 0.9 10^3/ul (0-0.8); ABS Neutrophils 10.5 10^3/ul (1.5-7.7); ABS Nucleated RBC 0 10^3/ul; Eosinophil % 2.1 % (0-6); Lymphocyte % 19.9 % (25-47); Nucleated Red Blood Cells % 0.1
[2017-08-01] MEDS: Nystatin SUSPENSION* 100000 UNITS/ML 5 ML UDC PO SCH (09:17)
[2017-08-01 11:37] VITALS: BP 91/47
--- NOTE | 2017-08-01 11:37 | PN ---
Subjective Date of Service: 08/01/17 Interval History: Patient seen and examined at bedside. Denies fever, chills, shortness of breath , chest discomfort, N/V/D. Tele: Sinus rhythm, rate 60-70's Family History: Unchanged from Admission Social History: Unchanged from Admission Past Medical History: Unchanged from Admission Objective Active Medications: Acetaminophen (Tylenol Tab*) 650 mg PO Q4H PRN Reason: FEVER/PAIN Albuterol/Ipratropium (Duoneb (Albuterol 2.5 Mg/Ipratropium 0.5 Mg)) 1 neb INH Q4H PRN Reason: SOB/WHEEZING Calcium Carbonate (Tums*) 500 mg PO Q4H PRN Reason: INDIGESTION Guaifenesin/Codeine Phosphate (Robitussin Ac 100mg-10mg*) 5 ml PO Q4H PRN Reason: COUGH Piperacillin Sod/Tazobactam (Sod 3.375 gm/ Sodium Chloride) 100 mls @ 25 mls/ hr IVPB Q8H [facility] Levothyroxine Sodium (Synthroid Tab*) 100 mcg PO 0600 [facility] Nystatin (Nystatin Suspension*) 500,000 units PO QID [facility] Stop: 08/06/17 16:52 Ondansetron HCl (Zofran Inj*) 4 mg IV Q6H PRN Reason: NAUSEA Pharmacy Consult (Zosyn Per Pharmacy*) 1 note FOLLOW UP . PRN Reason: PER PROTOCOL Tramadol HCl (Ultram*) 50 mg PO Q6H PRN Reason: PAIN Vital Signs - 8 hr 08/01/17 08/01/17 08/01/17 07:22 08:00 10:21 Temperature 97.8 F Pulse Rate 64 Respiratory 18 18 Rate Blood Pressure 102/56 (mmHg) O2 Sat by Pulse 96 98 Oximetry Oxygen Devices in Use Now: Nasal Cannula Appearance: NAD, sitting up in bed Ears/Nose/Mouth/Throat: Mucous Membranes Moist Respiratory: Symmetrical Chest Expansion and Respiratory Effort, Clear to Auscultation Cardiovascular: NL Sounds; No Murmurs; No JVD, RRR Abdominal: NL Sounds; No Tenderness; No Distention Extremities: No Edema Skin: No Rash or Ulcers Neurological: Alert and Oriented x 3, NL Muscle Strength and Tone Lines/Tubes/Other Access: Clean, Dry and Intact Peripheral IV - site benign Nutrition: Taking PO's Result Diagrams: 08/01/17 05:18 08/01/17 05:17 Microbiology and Other Data: Microbiology 07/24/17 01:00 Nasal Screen MRSA (PCR)(SUNDAY) - Final Nasal Mrsa Not Detected 07/23/17 10:20 Gram Stain - Final Sputum Assess/Plan/Problems-Billing Assessment: Ms. Bermna is a 57 y.o female with PMH significant sciatica, degenerative, hypothyroidism that was admitted for bilat pna with acute hypoxic respiratory failure. - Patient Problems (1) Bilateral pneumonia Code(s): J18.9 - PNEUMONIA, UNSPECIFIED ORGANISM SNOMED Code(s): 896369326 Comment: - Improving, afebrile and leukocytosis improving - Sputum cultures with normal rayo - Community acquired and no clear risk factors for mrsa or pseudomonas - Continues to require supplemental O2 with ambulation (2) Acute respiratory failure with hypoxia Code(s): J96.01 - ACUTE RESPIRATORY FAILURE WITH HYPOXIA SNOMED Code(s): 56399230 Comment: - Suspect secondary to PNA and ? COPD - Continues to require supplemental oxygen with ambulation - Will discharge with supplemental O2 for ambulation (3) Thrush, oral Code(s): B37.0 - CANDIDAL STOMATITIS SNOMED Code(s): 91296904 Comment: - Continue nystatin swish and spit (4) Bleeding Comment: - Patient reports that she has had 3 episodes of small amount of bleeding when wiping after urination. - Denies urinary frequency, urgency or pain after urination. 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 Stable for discharge to home this AM.
--- NOTE | 2017-08-02 16:34 | DS ---
CC: Dr. Gamez * DISCHARGE SUMMARY: DATE OF ADMISSION: 07/23/17 DATE OF DISCHARGE: 08/01/17 ATTENDING PHYSICIAN: Dr. Heidi Cox * (dictated by Chelsey Brewster NP). PRIMARY CARE PROVIDER: Dr. Will Gamez. PRIMARY DIAGNOSES: 1. Community-acquired pneumonia. 2. Sepsis, resolved. 3. Acute kidney injury secondary to sepsis. 4. Thrombocytosis, suspect secondary to sepsis. 5. Acute hypoxic respiratory failure, improved. 6. Oral thrush. 7. Possible vaginal bleeding, resolved. 8. Hypertroponinemia, suspect secondary to demand ischemia in the setting of pneumonia. SECONDARY DIAGNOSES: 1. Sciatica. 2. Hypothyroidism. 3. Degenerative joint disease. STUDIES WHILE IN THE HOSPITAL: 1. Chest x-ray on 07/23/17. Radiologist impression: Patchy densities described above are most consistent with pneumonia according to the reported clinical presentation. Pulmonary edema is also part of the differential. 2. Chest x-ray on 07/24/17. Radiologist impression: Bilateral infiltrates demonstrating interval progression. 3. Chest ultrasound on 07/24/17. Radiologist impression: Small bibasilar pleural effusions. 4. Chest x-ray from 07/27/17. Radiologist impression: Bilateral pulmonary infiltrates and pleural effusions with interval decrease in right pleural fluid. DISCHARGE MEDICATIONS: New home medications: 1. Augmentin 875 mg oral twice daily for 4 more days. 2. Nystatin suspension 500,000 units oral 4 times daily, swish and spit for 5 more days. Continued home medications: 1. Meloxicam 7.5 mg oral twice daily. 2. Levothyroxine 100 mcg oral daily. HISTORY OF PRESENT ILLNESS/HOSPITAL COURSE: Ms. Berman is a 57-year-old female with past medical history significant for degenerative joint disease, sciatica, hypothyroidism who presented to the emergency room with complaints of fever and cough. 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 She had subjective fevers, nausea, productive cough. The mucus the patient was coughing up was brown sputum. Due to her continuing to feel poorly , she decided to present to the emergency room for further evaluation. While in the emergency room, the patient was found to have leukocytosis with a white blood cell count of 15.3, troponin of 0.09, and negative flu A and B swab. She had a chest x-ray showing bilateral infiltrates at the inferior bases. Hospitalists were asked to evaluate the patient for admission. While in the hospital, the patient initially received Levaquin due to her CEPHALOSPORIN allergy. She received IV fluids. Her lactic acid was not elevated. Her white count came down. She was noted to have thrombocytosis suspected secondary to her infection. She developed acute respiratory failure requiring Vapotherm. She was able to be weaned off of oxygen down to room air with the exception of ambulation, which she had oxygen saturations down to 88% on room air with ambulation. She continued to have shortness of breath with exertion. Her sputum culture showed normal rayo. Her acute respiratory failure improved. She developed oral thrush, was treated with nystatin swish and spit. During her stay, the patient reported 3 episodes of small amount of bleeding after wiping after urination. It was unclear if this was from her urethra or vaginal area. She denied any urinary frequency, urgency, or pain after urination. It was suspected this could be secondary to her Lovenox, so her Lovenox was stopped and she had no further bleeding. 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 Ms. Berman is stable for discharge to home today. Vital signs are as follows : Temperature 98.3, heart rate 70, respiratory rate 18, O2 sat 97% on room air, blood pressure 91/47. DISCHARGE PLAN: Ms. Berman will be discharged to home. Activity as tolerated. She will be on a regular diet. For her community-acquired pneumonia , should be completed on Augmentin 875 mg oral twice daily for 4 more days to complete a 10-day total course of antibiotics. In regards to her oral thrush, she was started on nystatin 500,000 units swish and spit 4 times daily. She should do this for 5 more days. She has been set up a followup appointment with her primary care provider, Dr. Gamez. She has an appointment on August 07 at 12:20 p.m. She has been asked to stop smoking. She has been given oxygen for use with ambulation. I suspect she will be able to be weaned off of this when she fully recovers from her pneumonia. The patient has been asked to return to the emergency room for any increased shortness of breath or chest pain. POINTS TO CONSIDER AT FOLLOWUP: I recommend continuing to follow the patient's platelet count to ensure that her thrombocytosis is resolved. In addition, I would recommend getting a urinalysis at followup to ensure that she does not have any microscopic hematuria as it was unclear to the source of a bleeding, although that has resolved at this time. This is a summarized report of a complex medical history and hospital stay. For further details, please see the entire medical record. TIME SPENT: Time for this discharge was approximately 50 minutes, greater than half of that was spent with the patient discussing discharge plans and instructions. CONDITION ON DISCHARGE: Stable. CHELSEY BREWSTER NP [id number]/[facility] #: [id number] JIHAN
== END 2017-08-01 13:30 | disposition home or self-care (01) | DRG 720 ==
LOC: ED 05:04 → MEDTELE 08:24 → ICU 07-24 00:27 → MED 07-28 14:15
PROVIDERS: ADMIT Internal Medicine; ATTEND Internal Medicine
DX: A41.9 Sepsis, unspecified organism (principal); J18.9 Pneumonia, unspecified organism; J96.01 Acute respiratory failure with hypoxia; N17.9 Acute kidney failure, unspecified; J90 Pleural effusion, not elsewhere classified; B37.0 Candidal stomatitis; I24.8 Other forms of acute ischemic heart disease; R65.20 Severe sepsis without septic shock; D47.3 Essential (hemorrhagic) thrombocythemia; N93.9 Abnormal uterine and vaginal bleeding, unspecified; R74.8 Abnormal levels of other serum enzymes; T45.515A Adverse effect of anticoagulants, initial encounter; Y92.239 Unspecified place in hospital as the place of occurrence of the external cause; M54.30 Sciatica, unspecified side; E03.9 Hypothyroidism, unspecified; M19.90 Unspecified osteoarthritis, unspecified site; Z88.1 Allergy status to other antibiotic agents; Z88.6 Allergy status to analgesic agent; Z82.49 Family history of ischemic heart disease and other diseases of the circulatory system; Z87.891 Personal history of nicotine dependence
CPT/HCPCS: 36415; 71045; 76604; 80048; 80053; 80202; 81003; 81015; 82550; 83605; 83735; 83880; 84100; 84439; 84484; 85025; 85610; 85652; 85730; 86140; 87040; 87070; 87077; 87205; 87502; 87641; 87899; 90732; 93005; 94640; 94668; 94760; 99284; A9270-GY; J0456; J1650; J1885; J1940; J2405; J2543; J2920; J3370; J7512

== ENCOUNTER 2021-12-31 00:47 | Inpatient (IN) ==
[2021-12-31] MEDS ORDERED: Lactated Ringers 1000 ml BAG 1,000 ML IV ONE ×3 (01:33→11:20)
[2021-12-31 01:58] LABS: ABS Eosinophils 0.1 10^3/ul (0-0.6); ABS Lymphocytes 1.3 10^3/ul (1.0-4.8); ABS Monocytes 1.5 10^3/ul (0-0.8); ABS Neutrophils 6.8 10^3/ul (1.5-7.7); Eosinophil % 0.6 %; Hematocrit 30 % (35-47); Hemoglobin 10.2 g/dL (12.0-16.0); Lymphocyte % 13.4 %; Mean Corpuscular HGB Conc 34 g/dL (31-36); Mean Corpuscular Hemoglobin 30 pg (27-31); Mean Corpuscular Volume 87 fL (80-97); Mean Platelet Volume 8.7 fL (7.4-10.4); Platelet Count 273 10^3/uL (150-450); Red Blood Count 3.42 10^6 /uL (3.70-4.87); Red Cell Distribution Width 14 % (10-15); White Blood Count 9.8 10^3/uL (3.5-10.8)
[2021-12-31 02:14] LABS: ALT 9 U/L (7-52); AST 16 U/L (13-39); Albumin 4.2 g/dL (3.2-5.2); Albumin/Globulin Ratio 1.4 (1-3); Alkaline Phosphatase 61 U/L (35-149); Anion Gap 9 mmol/L (2-11); Blood Urea Nitrogen 14 mg/dL (6-24); CO2 Carbon Dioxide 27 mmol/L (22-32); Calcium 9.2 mg/dL (8.6-10.3); Chloride 98 mmol/L (101-111); Glucose 108 mg/dL (70-100); Potassium 3.4 mmol/L (3.5-5.0); Sodium 134 mmol/L (135-145); Total Protein 7.2 g/dL (6.4-8.9); eGFR CKD-EPI 57.5 (>60)
[2021-12-31] MEDS ORDERED: Iodixanol (CONTRAST) 320 MG/ML 100 ML SDV IV ONE (08:10)
[2021-12-31] MEDS ORDERED: Morphine 4 MG/ML VIAL (1 ml) IV ONE (08:49)
[2021-12-31 10:27] LABS: C Reactive Protein 161.27 mg/L (<8.01); Lipase 100 U/L (11.0-82.0); Magnesium 1.6 mg/dL (1.9-2.7)
[2021-12-31 10:47] LABS: Free T4 < 0.25 ng/dL (0.61-1.12)
[2021-12-31] MEDS: Ciprofloxacin 400mg IVPREMIX 400 MG/200 ML BAG IVPB SCH ×2 (10:48→22:45)
[2021-12-31] MEDS: Lactated Ringers 1000 ml BAG 1,000 ML IV SCH ×2 (10:48→21:22)
[2021-12-31] MEDS ORDERED: Magnesium Sulfate 2 gm BAG 2 GM/50 ML BAG IVPB ONE (11:25)
[2021-12-31] MEDS ORDERED: metroNIDAZOLE IV 500 MG/100ML 500 MG/100 ML BAG IVPB SCH ×2 (13:00→21:00)
[2021-12-31 13:03] LABS: Erythrocyte Sed Rate 68 mm/Hr (0-29)
[2021-12-31] MEDS: metroNIDAZOLE IV 500 MG/100ML 500 MG/100 ML BAG IVPB SCH ×2 (14:35→21:22)
[2021-12-31] MEDS: Morphine 2 MG/ML SYRINGE IV PRN ×2 (17:55→22:35)
[2022-01-01] MEDS: Acetaminophen IV 1 GM/100ML 100 ML IV PRN (00:29)
[2022-01-01] MEDS: metroNIDAZOLE IV 500 MG/100ML 500 MG/100 ML BAG IVPB SCH ×3 (05:01→23:47)
[2022-01-01] MEDS: Morphine 2 MG/ML SYRINGE IV PRN ×4 (07:52→23:17)
[2022-01-01] MEDS: Lactated Ringers 1000 ml BAG 1,000 ML IV SCH (07:52)
[2022-01-01 09:16] LABS: ABS Eosinophils 0.1 10^3/ul (0-0.6); ABS Lymphocytes 0.8 10^3/ul (1.0-4.8); ABS Monocytes 0.8 10^3/ul (0-0.8); ABS Neutrophils 8.2 10^3/ul (1.5-7.7); Eosinophil % 0.8 %; Hematocrit 30 % (35-47); Lymphocyte % 7.8 %; Mean Corpuscular HGB Conc 34 g/dL (31-36); Mean Corpuscular Hemoglobin 30 pg (27-31); Mean Corpuscular Volume 88 fL (80-97); Mean Platelet Volume 8.5 fL (7.4-10.4); Nucleated Red Blood Cells % 0.1; Platelet Count 251 10^3/uL (150-450); Red Blood Count 3.34 10^6 /uL (3.70-4.87); Red Cell Distribution Width 14 % (10-15); White Blood Count 9.9 10^3/uL (3.5-10.8)
[2022-01-01 10:07] LABS: Calcium 8.4 mg/dL (8.6-10.3); Potassium 3.3 mmol/L (3.5-5.0); eGFR CKD-EPI 74.2 (>60)
[2022-01-01] MEDS: Ciprofloxacin 400mg IVPREMIX 400 MG/200 ML BAG IVPB SCH (12:33)
[2022-01-01 15:42] LABS: Magnesium 1.7 mg/dL (1.9-2.7)
[2022-01-01] MEDS ORDERED: Magnesium Sulfate 2 gm BAG 2 GM/50 ML BAG IVPB ONE (16:17)
[2022-01-01] MEDS: Ondansetron 4 mg VIAL 2 MG/ML 2 ml VIAL IV PRN (17:00)
[2022-01-01 18:19] LABS: Albumin 3.6 g/dL (3.2-5.2); Albumin/Globulin Ratio 1.4 (1-3); C Reactive Protein 189.05 mg/L (<8.01); Direct Bilirubin 0.3 mg/dL (0.03-0.18); Globulin 2.5 g/dL (2-4); Total Bilirubin 1.3 mg/dL (0.2-1.0); Total Protein 6.1 g/dL (6.4-8.9)
[2022-01-01] MEDS: KCL 20 MEQ/100 ML IVPREMIX 20 MEQ/100 ML BAG IV SCH (20:22)
[2022-01-01] MEDS ORDERED: Lidocaine 2% JELLY 6 ML Topical TOPICAL ONE (21:31)
[2022-01-02] MEDS: Ciprofloxacin 400mg IVPREMIX 400 MG/200 ML BAG IVPB SCH ×3 (00:55→22:40)
[2022-01-02] MEDS: methylPREDNISolone SOD SUCC 40 mg/ml 1 ml VIAL IV SCH ×3 (00:55→11:08)
[2022-01-02] MEDS: KCL 20 MEQ/100 ML IVPREMIX 20 MEQ/100 ML BAG IV SCH (02:31)
[2022-01-02] MEDS: Lactated Ringers 1000 ml BAG 1,000 ML IV SCH ×3 (03:31→22:41)
[2022-01-02] MEDS: Morphine 2 MG/ML SYRINGE IV PRN ×4 (03:38→21:41)
[2022-01-02] MEDS: metroNIDAZOLE IV 500 MG/100ML 500 MG/100 ML BAG IVPB SCH ×3 (05:56→21:42)
[2022-01-02 06:48] LABS: ABS Lymphocytes 0.6 10^3/ul (1.0-4.8); ABS Monocytes 0.4 10^3/ul (0-0.8); ABS Neutrophils 6.6 10^3/ul (1.5-7.7); Eosinophil % 0.1 %; Hematocrit 26 % (35-47); Hemoglobin 8.8 g/dL (12.0-16.0); Lymphocyte % 7.8 %; Mean Corpuscular HGB Conc 34 g/dL (31-36); Mean Corpuscular Hemoglobin 30 pg (27-31); Mean Corpuscular Volume 87 fL (80-97); Mean Platelet Volume 8.2 fL (7.4-10.4); Nucleated Red Blood Cells % 0.1; Platelet Count 280 10^3/uL (150-450); Red Blood Count 2.96 10^6 /uL (3.70-4.87); Red Cell Distribution Width 14 % (10-15); White Blood Count 7.6 10^3/uL (3.5-10.8)
[2022-01-02 07:43] LABS: Albumin 3.1 g/dL (3.2-5.2); Albumin/Globulin Ratio 1.3 (1-3); C Reactive Protein 196.91 mg/L (<8.01); Calcium 7.9 mg/dL (8.6-10.3); Globulin 2.3 g/dL (2-4); Total Bilirubin 0.9 mg/dL (0.2-1.0); Total Protein 5.4 g/dL (6.4-8.9); eGFR CKD-EPI 76.2 (>60)
[2022-01-02 08:52] LABS: Magnesium 1.7 mg/dL (1.9-2.7)
[2022-01-02] MEDS ORDERED: Magnesium Sulfate 2 gm BAG 2 GM/50 ML BAG IVPB ONE (10:43)
[2022-01-02 16:20] LABS: Adenovirus F40/41 Negative (Negative); Astrovirus Negative (Negative); Cryptosporidium species Negative (Negative); Cyclospora cayetanensis Negative (Negative); Entamoeba histolytica Negative (Negative); Enteroaggregative E.coli(EAEC) Negative (Negative); Enteropathogenic Ecoli(EPEC) Negative (Negative); Enterotoxigenic Ecoli(ETEC) Negative (Negative); Norovirus GI/GII Negative (Negative); Plesiomonas shigelloides Negative (Negative); Salmonella species Positive (Negative); Sapovirus Negative (Negative); Shiga toxin producing E. coli Negative (Negative); Shigella/Enteroinvasive E.coli Negative (Negative); Specimen Source STOOL; Vibrio cholerae Negative (Negative); Yersinia species Negative (Negative)
[2022-01-03] MEDS: Morphine 2 MG/ML SYRINGE IV PRN ×3 (05:04→21:53)
[2022-01-03] MEDS: metroNIDAZOLE IV 500 MG/100ML 500 MG/100 ML BAG IVPB SCH (05:07)
[2022-01-03 05:33] LABS: ABS Lymphocytes 1.3 10^3/ul (1.0-4.8); ABS Monocytes 1.3 10^3/ul (0-0.8); ABS Neutrophils 12.7 10^3/ul (1.5-7.7); Hematocrit 28 % (35-47); Hemoglobin 9.6 g/dL (12.0-16.0); Lymphocyte % 8.8 %; Mean Corpuscular HGB Conc 34 g/dL (31-36); Mean Corpuscular Hemoglobin 30 pg (27-31); Mean Corpuscular Volume 87 fL (80-97); Mean Platelet Volume 8.7 fL (7.4-10.4); Platelet Count 339 10^3/uL (150-450); Red Blood Count 3.22 10^6 /uL (3.70-4.87); Red Cell Distribution Width 14 % (10-15); White Blood Count 15.3 10^3/uL (3.5-10.8)
[2022-01-03 05:52] LABS: Albumin 3.4 g/dL (3.2-5.2); Albumin/Globulin Ratio 1.4 (1-3); C Reactive Protein 161.99 mg/L (<8.01); Calcium 8.5 mg/dL (8.6-10.3); Globulin 2.5 g/dL (2-4); Potassium 3.7 mmol/L (3.5-5.0); Total Bilirubin 0.7 mg/dL (0.2-1.0); Total Protein 5.9 g/dL (6.4-8.9); eGFR CKD-EPI 72.2 (>60)
[2022-01-03] MEDS: Ciprofloxacin 400mg IVPREMIX 400 MG/200 ML BAG IVPB SCH ×2 (10:37→21:53)
[2022-01-03] MEDS ORDERED: NS 0.9% IVPB SCH (12:00)
[2022-01-03] MEDS ORDERED: AZITHROMYCIN IVPB SCH (12:00)
[2022-01-03 20:06] LABS: Calprotectin 58.4 mcg/g
[2022-01-04 06:14] LABS: ABS Lymphocytes 1.2 10^3/ul (1.0-4.8); ABS Neutrophils 6.9 10^3/ul (1.5-7.7); Eosinophil % 0.3 %; Hematocrit 27 % (35-47); Hemoglobin 9.1 g/dL (12.0-16.0); Lymphocyte % 13.6 %; Mean Corpuscular HGB Conc 34 g/dL (31-36); Mean Corpuscular Hemoglobin 30 pg (27-31); Mean Corpuscular Volume 87 fL (80-97); Mean Platelet Volume 8.2 fL (7.4-10.4); Nucleated Red Blood Cells % 0.1; Platelet Count 308 10^3/uL (150-450); Red Blood Count 3.06 10^6 /uL (3.70-4.87); Red Cell Distribution Width 14 % (10-15); White Blood Count 9.2 10^3/uL (3.5-10.8)
[2022-01-04 06:23] LABS: Calcium 7.9 mg/dL (8.6-10.3); Potassium 3.1 mmol/L (3.5-5.0); eGFR CKD-EPI 70.4 (>60)
[2022-01-04 09:12] LABS: Albumin/Globulin Ratio 1.5 (1-3); C Reactive Protein 84.3 mg/L (<8.01); Direct Bilirubin 0.1 mg/dL (0.03-0.18); Indirect Bilirubin 0.4 mg/dL (0.3-1.0); Magnesium 1.6 mg/dL (1.9-2.7); Total Bilirubin 0.5 mg/dL (0.2-1.0)
[2022-01-04] MEDS: Ciprofloxacin 400mg IVPREMIX 400 MG/200 ML BAG IVPB SCH (09:52)
[2022-01-04] MEDS ORDERED: Magnesium Sulfate IV 3 GM in NS 0.9% 100 ml BAG 100 ML IVPB ONE (11:29)
[2022-01-04] MEDS ORDERED: Magnesium Sulfate 2 gm BAG 2 GM/50 ML BAG IVPB ONE (12:00)
[2022-01-04] MEDS: KCL 20 MEQ/100 ML IVPREMIX 20 MEQ/100 ML BAG IV SCH ×5 (12:12→23:46)
[2022-01-04] MEDS ORDERED: Magnesium Sulfate 1 GM IV 1 GM/100 ML BAG IV ONE (13:00)
[2022-01-04] MEDS: Acetaminophen IV 1 GM/100ML 100 ML IV PRN (15:53)
[2022-01-04] MEDS ORDERED: Potassium Chlor 20 meq TAB.ER PO ONE (23:37)
[2022-01-05] MEDS: Enoxaparin 80 MG/0.8 ML SYR SUBCUT SCH ×2 (04:54→17:31)
[2022-01-05 09:36] LABS: Calcium 7.9 mg/dL (8.6-10.3); Potassium 3.6 mmol/L (3.5-5.0); eGFR CKD-EPI 83.1 (>60)
[2022-01-05] MEDS ORDERED: Iohexol 350 (CONTRAST) 500 ML MDV IV ONE (10:20)
[2022-01-05] MEDS: Potassium Chloride IV 20 MEQ in Lactated Ringers 1000 ml BAG 1,000 ML IVPB SCH (13:15)
[2022-01-05] MEDS: Azithromycin 500 mg/250 ml NS 500 MG/250 ML BAG IVPB SCH (17:30)
[2022-01-05] MEDS: Acetaminophen IV 1 GM/100ML 100 ML IV PRN (19:36)
[2022-01-06] MEDS: Potassium Chloride IV 20 MEQ in Lactated Ringers 1000 ml BAG 1,000 ML IVPB SCH ×2 (02:57→14:11)
[2022-01-06] MEDS: Enoxaparin 80 MG/0.8 ML SYR SUBCUT SCH ×2 (05:07→17:37)
[2022-01-06 05:59] LABS: ABS Eosinophils 0.1 10^3/ul (0-0.6); ABS Lymphocytes 2.7 10^3/ul (1.0-4.8); ABS Monocytes 0.9 10^3/ul (0-0.8); ABS Neutrophils 8.6 10^3/ul (1.5-7.7); Eosinophil % 1.1 %; Hematocrit 28 % (35-47); Hemoglobin 9.2 g/dL (12.0-16.0); Lymphocyte % 21.9 %; Mean Corpuscular HGB Conc 34 g/dL (31-36); Mean Corpuscular Hemoglobin 30 pg (27-31); Mean Corpuscular Volume 88 fL (80-97); Mean Platelet Volume 7.9 fL (7.4-10.4); Nucleated Red Blood Cells % 0.1; Platelet Count 324 10^3/uL (150-450); Red Blood Count 3.13 10^6 /uL (3.70-4.87); Red Cell Distribution Width 15 % (10-15); White Blood Count 12.5 10^3/uL (3.5-10.8)
[2022-01-06 06:15] LABS: Albumin/Globulin Ratio 1.5 (1-3); Calcium 7.8 mg/dL (8.6-10.3); Potassium 3.9 mmol/L (3.5-5.0); Total Bilirubin 0.5 mg/dL (0.2-1.0); eGFR CKD-EPI 84.3 (>60)
[2022-01-06] MEDS: Acetaminophen IV 1 GM/100ML 100 ML IV PRN ×2 (07:30→21:28)
[2022-01-06] MEDS: Azithromycin 500 mg/250 ml NS 500 MG/250 ML BAG IVPB SCH (17:29)
[2022-01-06] MEDS: Ondansetron 4 mg VIAL 2 MG/ML 2 ml VIAL IV PRN (19:46)
[2022-01-07] MEDS: Potassium Chloride IV 20 MEQ in Lactated Ringers 1000 ml BAG 1,000 ML IVPB SCH ×3 (02:53→14:40)
[2022-01-07] MEDS: Enoxaparin 80 MG/0.8 ML SYR SUBCUT SCH ×2 (05:03→18:43)
[2022-01-07 10:47] LABS: Hematocrit 31 % (35-47); Hemoglobin 10.1 g/dL (12.0-16.0); Mean Corpuscular HGB Conc 32 g/dL (31-36); Mean Corpuscular Hemoglobin 29 pg (27-31); Mean Corpuscular Volume 88 fL (80-97); Mean Platelet Volume 7.1 fL (7.4-10.4); Platelet Count 369 10^3/uL (150-450); Red Blood Count 3.54 10^6 /uL (3.70-4.87); Red Cell Distribution Width 14 % (10-15); White Blood Count 14.6 10^3/uL (3.5-10.8)
[2022-01-07 11:30] LABS: ABS Basophils 0.1 10^3/ul (0-0.2); ABS Eosinophils 0.2 10^3/ul (0-0.6); ABS Lymphocytes 3.2 10^3/ul (1.0-4.8); ABS Monocytes 0.9 10^3/ul (0-0.8); ABS Neutrophils 10.4 10^3/ul (1.5-7.7); Calcium 8.4 mg/dL (8.6-10.3); Eosinophil % 1.2 %; Lymphocyte % 21.6 %; Magnesium 1.7 mg/dL (1.9-2.7); Potassium 4.2 mmol/L (3.5-5.0); eGFR CKD-EPI 77.3 (>60)
[2022-01-07] MEDS: Azithromycin 500 mg/250 ml NS 500 MG/250 ML BAG IVPB SCH (18:43)
[2022-01-07] MEDS: Acetaminophen IV 1 GM/100ML 100 ML IV PRN (23:25)
[2022-01-08] MEDS: Potassium Chloride IV 20 MEQ in Lactated Ringers 1000 ml BAG 1,000 ML IVPB SCH ×2 (02:20→10:51)
[2022-01-08] MEDS: Enoxaparin 80 MG/0.8 ML SYR SUBCUT SCH (05:06)
[2022-01-08 08:34] LABS: Hematocrit 31 % (35-47); Mean Corpuscular HGB Conc 33 g/dL (31-36); Mean Corpuscular Hemoglobin 29 pg (27-31); Mean Corpuscular Volume 88 fL (80-97); Mean Platelet Volume 7.2 fL (7.4-10.4); Platelet Count 376 10^3/uL (150-450); Red Blood Count 3.51 10^6 /uL (3.70-4.87); Red Cell Distribution Width 15 % (10-15); White Blood Count 14.2 10^3/uL (3.5-10.8)
[2022-01-08 09:05] LABS: Calcium 8.4 mg/dL (8.6-10.3); Magnesium 1.8 mg/dL (1.9-2.7); Potassium 4.6 mmol/L (3.5-5.0); eGFR CKD-EPI 77.3 (>60)
[2022-01-08 10:54] LABS: ABS Eosinophils 0.2 10^3/ul (0-0.6); ABS Lymphocytes 3.2 10^3/ul (1.0-4.8); ABS Monocytes 1.1 10^3/ul (0-0.8); ABS Neutrophils 9.6 10^3/ul (1.5-7.7); Eosinophil % 1.4 %; Lymphocyte % 22.7 %; Nucleated Red Blood Cells % 0.1
[2022-01-09 06:35] LABS: Hematocrit 28 % (35-47); Hemoglobin 9.3 g/dL (12.0-16.0); Mean Corpuscular HGB Conc 33 g/dL (31-36); Mean Corpuscular Hemoglobin 29 pg (27-31); Mean Corpuscular Volume 88 fL (80-97); Mean Platelet Volume 7.7 fL (7.4-10.4); Platelet Count 341 10^3/uL (150-450); Red Cell Distribution Width 15 % (10-15); White Blood Count 11.6 10^3/uL (3.5-10.8)
[2022-01-09 06:48] LABS: Calcium 8.3 mg/dL (8.6-10.3); Magnesium 1.8 mg/dL (1.9-2.7); Potassium 4.4 mmol/L (3.5-5.0); eGFR CKD-EPI 79.5 (>60)
[2022-01-09 06:55] LABS: ABS Eosinophils 0.1 10^3/ul (0-0.6); ABS Lymphocytes 2.9 10^3/ul (1.0-4.8); ABS Monocytes 0.9 10^3/ul (0-0.8); ABS Neutrophils 7.7 10^3/ul (1.5-7.7); Eosinophil % 1.1 %; Lymphocyte % 24.9 %; Nucleated Red Blood Cells % 0.1
[2022-01-09 07:12] VITALS: BP 117/64
== END 2022-01-09 10:40 | disposition home or self-care (01) | DRG 248 ==
LOC: ED 00:47 → MED 00:47 → EDHOLD 00:47 → SUATTDRO 01-02 14:00 → MED 01-03 16:44
PROVIDERS: ADMIT Pediatrics; ATTEND Hospitalist